=== PATIENT | female | born 1995 | race Two or more races ===

== ENCOUNTER 2025-08-01 19:17 | Emergency (ER) | payer OTHER ==
[~2025-08-01] VITALS: Ht 154.9 cm; Wt 68.0 kg
[2025-08-01] MEDS ORDERED: DEXAMETHASONE SODIUM PHOSPHATE 4 MG/ML VIAL IM STA (21:07)
[2025-08-01] MEDS ORDERED: ACETAMINOPHEN 500 MG GEL..CAP PO STA (21:07)
[2025-08-01] MEDS ORDERED: ORPHENADRINE CITRATE 100 MG TABLET PO STA (21:08)
[2025-08-01] MEDS ORDERED: DEXAMETHASONE SODIUM PHOSPHATE 4 MG/ML VIAL ONE (21:11)
[2025-08-01] MEDS ORDERED: ACETAMINOPHEN 500 MG GEL..CAP PO ONE (21:11)
[2025-08-01 21:33] LABS: BASO % 0.5 % (0.1-1.2); EOS # 0.27 (0.04-0.54); EOS % 2.9 % (0.7-7.0); LYMPH # 2.83 (1.18-3.74); LYMPH % 30.9 % (19.3-53.1); MEAN PLATELET VOLUME 11.00 fl (9.4-12.4); MONO # 0.66 (0.24-0.82); MONO % 7.2 % (4.7-12.5); NEUT # 5.34 (1.56-6.13); NEUT % 58.3 % (34.0-71.1); RED CELL DISTRIBUTION WIDTH 14.3 % (11.6-14.4)
[2025-08-01 22:12] LABS: BUN CREA RATIO 19.0 (7.0-25.0); CREATININE SERUM 0.73 mg/dL (0.55-1.02); GFR 93.61; GLUCOSE FASTING 91.0 mg/dL (65-100); OSMOLALITY SERUM 281.0 MOSM/KG (275-295)
== END 2025-08-01 22:41 | disposition home or self-care (01) ==
LOC: ER 19:17
PROVIDERS: General Practice
DX: O99.891 Other specified diseases and conditions complicating pregnancy (principal); Z88.0 Allergy status to penicillin; Z88.1 Allergy status to other antibiotic agents; Z88.6 Allergy status to analgesic agent; Z3A.00 Weeks of gestation of pregnancy not specified; M94.0 Chondrocostal junction syndrome [Tietze]